=== PATIENT | female | born 1985 | race Caucasian/White ===

== ENCOUNTER 2018-01-12 00:57 | Emergency (ER) | payer BC ==
[2018-01-12] MEDS ORDERED: Famotidine 20 MG TAB ONE (01:22)
[2018-01-12] MEDS ORDERED: Mag-Al 1200 mg/1200 mg/30 ML UDCUP ONE (01:22)
[2018-01-12] MEDS ORDERED: Lidocaine Viscous Sol 2% 15 ml UD Cup ONE (01:22)
[2018-01-12 01:28] LABS: #Basophils 0.1 thou/uL (0.0-0.2); #Eosinphils 0.4 thou/uL (0.0-0.7); #Lymphocytes 3.9 thou/uL (1.20-3.40); #Monocytes 0.7 thou/uL (0.11-0.59); #Neutrophils 6.8 thou/uL (1.40-6.50); %Basophils 0.7 % (0.0-1.0); %Monocytes 6.1 % (0.0-10.0); %Neutrophils 57.3 % (42.0-75.0); Hemoglobin 14.4 g/dL (12.0-16.0); Mean Corpuscular HGB CONC 33.9 g/dL (32.0-36.0); Mean Corpuscular Hemoglobin 30.5 pg (27.0-31.0); Mean Platelet Volume 7.9 fL (7.4-10.4); Platelet Count 339 thou/uL (130-400); RBC Distribution Width 12.4 % (11.5-14.5); Red Blood Cell (RBC) Count 4.73 mill/uL (4.20-5.40); White Blood Cell (WBC) Count 11.9 thou/uL (4.8-10.8)
[2018-01-12 01:56] LABS: ALT (SGPT) 21 U/L (8-55); AST (SGOT) 15 U/L (5-34); Albumin 4.2 g/dL (3.5-5.0); Alkaline Phosphatase 103 U/L (40-150); Anion Gap 10 mmol/L (10-20); BUN (Urea Nitrogen) 12 mg/dL (7.0-18.7); Bilirubin, Total 0.3 mg/dL (0.2-1.2); CK (CPK) 72 U/L (29-168); Calc. Creatinine Clearance 0 mL/min (70-130); Calcium 9.2 mg/dL (7.8-10.44); Carbon Dioxide 27 mmol/L (22-29); Chloride 105 mmol/L (98-107); Estimated GFR-MDRD Greater than 90; Globulin 2.8 g/dL (2.4-3.5); Glucose 90 mg/dL (70-105); Potassium 3.8 mmol/L (3.5-5.1); Sodium 138 mmol/L (136-145)
[2018-01-12 01:59] LABS: CKMB 1.1 ng/mL (0-6.6); Troponin I Less than 0.010 ng/mL (< 0.028)
--- NOTE | 2018-01-12 09:58 | RAD ---
PORTABLE CHEST: Date: 01/12/18 HISTORY: Chest pain. FINDINGS: Heart size and mediastinum are within normal limits for portable technique. The lungs are clear of in filtrative process. No signs of failure. IMPRESSION: No active intrathoracic disease. POS: [facility]
--- NOTE | 2018-01-12 11:51 | ULT ---
PRELIMINARY REPORT/[facility]/EMERGENTY AFTER-HOURS PROCEDURE US Abdomen Limited, Right Upper Quadrant EXAM DATE/TIME: Exam ordered 01/12/2018 1:48 AM CLINICAL HISTORY: 32 years old, female; Pain; Other: Chest/ epigastric TECHNIQUE: Real-time ultrasound of the right upper quadrant with image documentation. COMPARISON: No relevant prior studies available. FINDINGS: Liver: Hepatic steatosis. No intrahepatic bile duct dilation. Gallbladder: Unremarkable. No gallstones. Common bile duct: Unremarkable as visualized. No stones. No dilation. Pancreas: Unremarkable as visualized. Right kidney: Unremarkable. No stones. No solid mass. No hydronephrosis. IMPRESSION: No acute findings. Thank you for allowing us to participate in the care of your patient. Dictated and Authenticated by: Renzo Sharif MD 01/12/2018 2:42 AM Central Time ([place] & [place]) FINAL REPORT EMERGENCY AFTER HOURS GALLBLADDER ULTRASOUND: Date: 01/12/18 HISTORY: Right upper quadrant pain. FINDINGS: Real-time imaging of the right upper quadrant shows a normal appearing gallbladder. The common duct i s 4.0 mm. Liver parenchyma shows no focal abnormalities. Pancreas is partially obscured. The right ki dney is normal in size and not obstructed. Technologist reports a negative ultrasound Boyd's sign. IMPRESSION: Unremarkable gallbladder ultrasound. This report is in agreement with the preliminary report issued by [facility]. POS: [facility]
== END 2018-01-12 02:40 | disposition home or self-care (01) ==
LOC: ERS 00:57
DX: R10.13 Epigastric pain (principal); R07.2 Precordial pain
CPT/HCPCS: 71045; 76705; 80053; 82550; 82553; 83690; 84484; 85025; 93005; 99406